=== PATIENT | male | born 1990 | race Caucasian/White ===

== ENCOUNTER 2017-04-10 06:15 | Inpatient (IN) ==
[2017-04-10] MEDS ORDERED: SODIUM CHLORIDE 0.9% 1,000 ML IV STA (06:32)
[2017-04-10] MEDS ORDERED: PANTOPRAZOLE 40 MG VIAL IV STA ×2 (06:32→11:20)
[2017-04-10] MEDS ORDERED: DICYCLOMINE 20 MG/2 ML AMP IM ONE ×2 (06:32→06:45)
[2017-04-10] MEDS ORDERED: ONDANSETRON 4 MG/2 ML VIAL IV STA ×2 (06:32→07:36)
[2017-04-10] MEDS ORDERED: ONDANSETRON 4 MG/2 ML VIAL ONE ×3 (06:45→16:28)
[2017-04-10] MEDS ORDERED: PANTOPRAZOLE 40 MG VIAL IV ONE (06:45)
[2017-04-10 06:47] LABS: Basophils # 0.1 10*3/uL (0.0-0.2); Basophils % 0.4 % (0.0-0.8); Eosinophils # 0.1 10*3/uL (0.0-0.87); Eosinophils % 0.4 % (0.00-10.9); Hematocrit 47.4 VOL% (42.0-52.0); Hemoglobin 16.2 GM/DL (14.0-18.0); Immature Granulocytes % 0.5 %; Immature Granulocytes Absolute 0.08 #; Lymphocytes # 1.9 10*3/uL (1.4-4.0); Lymphocytes % 12.5 % (21.2-54.2); Mean Corpuscular HGB Conc 34.2 GM/DL (32-36); Mean Corpuscular Hemoglobin 31 PG (27-34); Mean Corpuscular Volume 90.3 FL (87-102); Mean Platelet Volume 10.7 FL (9.6-12.0); Monocytes # 0.8 10*3/uL (0.11-0.8); Monocytes % 5.3 % (1.7-12.7); Neutrophils % 80.9 % (38.7-73.9); Platelet Count 380 T/CUMM (130-400); Red Blood Count 5.25 MC/CUMM (3.8-5.5); Red Cell Distribution Width 11.9 % (9.3-17.3); White Blood Count 14.8 T/CUMM (4-12)
[2017-04-10] MEDS ORDERED: cefTRIAXone 1,000 MG in SODIUM CHLORIDE 0.9% 100 ML IV STA (07:10)
[2017-04-10] MEDS ORDERED: metroNIDAZOLE INJ 500 MG in PREMIX 1 EACH IV STA (07:11)
[2017-04-10 07:16] LABS: Alanine Aminotransferase 24 U/L (16-61); Albumin 4.5 G/DL (3.4-5.0); Alkaline Phosphatase 76 U/L (45-117); Amylase 55 U/L (25-115); Aspartate Amino Transferase 27 U/L (0-37); Blood Urea Nitrogen 12 MG/DL (7-18); Glucose 114 MG/DL (74-106); Osmolality,Calculated 277.5 MOS/KG (273-304); Potassium 4.2 MMOL/L (3.5-5.1); Sodium 139 MMOL/L (136-145); Total Protein 8.1 G/DL (6.4-8.3); Troponin I Only < 0.015 NG/ML (0.00-0.045)
[2017-04-10] MEDS ORDERED: cefTRIAXone 1,000 MG VIAL ONE ×2 (07:28→15:45)
[2017-04-10] MEDS ORDERED: metroNIDAZOLE 500 MG/100 ML PREMIX IV ONE (07:28)
[2017-04-10 07:35] LABS: Apearance,Urine Slightly Hazy (Clear); Bacteria,Urine Occasional /HPF (Few); Bilirubin,Urine Negative (Negative); Blood, Urine Negative (Negative); Glucose,Urine (UA) Negative (Negative); Ketones,Urine 20 mg/dL (Negative); Mucus,Urine Moderate /LPF (Occasional); Nitrite,Urine Negative (Negative); Protein,Urine 100 MG/DL; RBC,Urine 5 /HPF (0-4); Urine Color Amber (Yellow); Urine Specific Gravity 1.027 (1.001-1.035); WBC,Urine 2 /HPF (0-6)
[2017-04-10] MEDS ORDERED: HYDROmorphone 2 MG/1 ML VIAL ONE ×2 (07:36→16:27)
[2017-04-10] MEDS ORDERED: HYDROmorphone 2 MG/1 ML VIAL IV STA ×2 (07:36→09:55)
[2017-04-10 08:15] LABS: Lactic Acid 0.9 MMOL/L (0.4-2.0)
[2017-04-10] MEDS ORDERED: HYDROmorphone 2 MG/1 ML VIAL IV PRN (11:20)
[2017-04-10] MEDS: ONDANSETRON 4 MG/2 ML VIAL IV PRN (11:47)
[2017-04-10] MEDS: LACTATED RINGERS 1,000 ML IV SCH ×3 (11:50→20:30)
[2017-04-10] MEDS: cefTRIAXone 2,000 MG in SYRINGE 1 EACH IV SCH (13:52)
[2017-04-10] MEDS: metroNIDAZOLE INJ 500 MG in PREMIX 1 EACH IV SCH ×2 (13:53→18:04)
[2017-04-10] MEDS ORDERED: ONDANSETRON 4 MG/2 ML VIAL IV PRN (16:08)
[2017-04-10] MEDS ORDERED: PROPOFOL 200 MG/20 ML VIAL IV ONE (16:27)
[2017-04-10] MEDS: HYDROmorphone 2 MG/1 ML VIAL IV PRN ×4 (16:27→16:42)
[2017-04-10] MEDS ORDERED: ROCURONIUM 100 MG/10 ML VIAL IV ONE (16:28)
[2017-04-10] MEDS ORDERED: NEOSTIGMINE 10 MG/10 ML VIAL ONE (16:28)
[2017-04-10] MEDS ORDERED: MIDAZOLAM 2 MG/2 ML VIAL ONE (16:28)
[2017-04-10] MEDS ORDERED: LACTATED RINGERS 1,000 ML IV ONE (16:28)
[2017-04-10] MEDS ORDERED: SODIUM CHLORIDE 0.9% 100 ML IV ONE (16:28)
[2017-04-10] MEDS ORDERED: SUCCINYLCHOLINE 200 MG/10 ML VIAL ONE (16:28)
[2017-04-10] MEDS ORDERED: GLYCOPYRROLATE 0.4 MG/2 ML VIAL ONE (16:28)
[2017-04-10] MEDS ORDERED: NALOXONE 0.4 MG/ML VIAL IV PRN (16:30)
[2017-04-10] MEDS ORDERED: MORPHINE PCA 150 MG/30 ML SYRINGE IV SCH (16:30)
[2017-04-10] MEDS ORDERED: MORPHINE PCA 30 MG/30 ML SYRINGE IV ONE ×2 (16:41→17:06)
[2017-04-10 16:44] LABS: Apearance,Urine CLEAR (Clear); Bilirubin,Urine Negative (Negative); Blood, Urine Negative (Negative); Glucose,Urine (UA) Negative (Negative); Ketones,Urine 80 mg/dL (Negative); Mucus,Urine Occasional /LPF (Occasional); Nitrite,Urine Negative (Negative); Protein,Urine Negative; RBC,Urine 12 /HPF (0-4); Squamous Epithelial Cell,Urine Occasional /HPF (0-10); Urine Color Yellow (Yellow); Urine Specific Gravity > 1.060 (1.001-1.035); Urine Urobilinogen < 2.0 EU/DL (0.2-1.0); WBC,Urine 1 /HPF (0-6)
[2017-04-10] MEDS: MORPHINE PCA 30 MG/30 ML SYRINGE IV SCH (17:06)
[2017-04-10] MEDS ORDERED: KETOROLAC 30 MG/1 ML VIAL IV ONE (23:00)
[2017-04-11] MEDS: metroNIDAZOLE INJ 500 MG in PREMIX 1 EACH IV SCH ×5 (00:44→23:59)
[2017-04-11] MEDS: MORPHINE PCA 30 MG/30 ML SYRINGE IV SCH (03:13)
[2017-04-11] MEDS: KETOROLAC 15 MG/1 ML VIAL IV SCH ×4 (04:50→23:49)
[2017-04-11] MEDS: LACTATED RINGERS 1,000 ML IV SCH ×3 (07:24→21:39)
[2017-04-11] MEDS ORDERED: LACTATED RINGERS 2,000 ML IV ONE (10:59)
[2017-04-11] MEDS: HYDROmorphone 2 MG/1 ML VIAL IV PRN ×4 (11:47→21:38)
[2017-04-11] MEDS: cefTRIAXone 2,000 MG in SYRINGE 1 EACH IV SCH (15:08)
[2017-04-11] MEDS: KETOROLAC 30 MG/1 ML VIAL IV SCH (23:57)
[2017-04-12] MEDS: LACTATED RINGERS 1,000 ML IV SCH ×4 (02:29→23:33)
[2017-04-12] MEDS: HYDROmorphone 2 MG/1 ML VIAL IV PRN ×7 (02:39→22:11)
[2017-04-12] MEDS: ONDANSETRON 4 MG/2 ML VIAL IV PRN ×4 (02:44→22:02)
[2017-04-12] MEDS: KETOROLAC 30 MG/1 ML VIAL IV SCH ×4 (05:52→23:33)
[2017-04-12] MEDS: metroNIDAZOLE INJ 500 MG in PREMIX 1 EACH IV SCH ×4 (05:52→23:37)
[2017-04-12 05:59] LABS: Basophils % 0.1 % (0.0-0.8); Eosinophils # 0.2 10*3/uL (0.0-0.87); Eosinophils % 2.1 % (0.00-10.9); Hematocrit 34.2 VOL% (42.0-52.0); Immature Granulocytes % 0.4 %; Immature Granulocytes Absolute 0.03 #; Lymphocytes % 24.2 % (21.2-54.2); Mean Corpuscular HGB Conc 34.2 GM/DL (32-36); Mean Corpuscular Hemoglobin 31 PG (27-34); Mean Corpuscular Volume 91.4 FL (87-102); Mean Platelet Volume 10.8 FL (9.6-12.0); Monocytes # 0.9 10*3/uL (0.11-0.8); Monocytes % 11.4 % (1.7-12.7); Neutrophils # 5.1 10*3/uL (1.4-7.4); Neutrophils % 61.8 % (38.7-73.9); Red Cell Distribution Width 11.6 % (9.3-17.3)
[2017-04-12 07:11] LABS: Red Blood Count 3.74 MC/CUMM (3.8-5.5); White Blood Count 8.2 T/CUMM (4-12)
[2017-04-12 07:12] LABS: Hemoglobin 11.7 GM/DL (14.0-18.0); Platelet Count 227 T/CUMM (130-400)
[2017-04-12 09:10] LABS: Calcium 8.4 MG/DL (8.5-10.1); Osmolality,Calculated 282.1 MOS/KG (273-304); Potassium 3.9 MMOL/L (3.5-5.1)
[2017-04-12] MEDS ORDERED: POLYVINYL ALCOHOL 1.4% OPH SOLN 15 ML BOTTLE BOTH EYES PRN (10:59)
[2017-04-12] MEDS ORDERED: LACTATED RINGERS 1,000 ML IV ONE (11:37)
[2017-04-12] MEDS: cefOXitin 2,000 MG in SYRINGE 1 EACH IV SCH ×2 (12:52→21:10)
[2017-04-12] MEDS: ENOXAPARIN 40 MG/0.4 ML SYRINGE SUBCUT SCH (12:53)
[2017-04-13] MEDS: HYDROmorphone 2 MG/1 ML VIAL IV PRN ×6 (02:06→20:07)
[2017-04-13] MEDS: cefOXitin 2,000 MG in SYRINGE 1 EACH IV SCH ×3 (04:31→20:29)
[2017-04-13] MEDS: LACTATED RINGERS 1,000 ML IV SCH ×3 (04:36→17:56)
[2017-04-13 05:07] LABS: Basophils % 0.3 % (0.0-0.8); Eosinophils # 0.5 10*3/uL (0.0-0.87); Eosinophils % 5.8 % (0.00-10.9); Hematocrit 31.5 VOL% (42.0-52.0); Hemoglobin 10.9 GM/DL (14.0-18.0); Immature Granulocytes % 0.4 %; Immature Granulocytes Absolute 0.03 #; Lymphocytes # 1.6 10*3/uL (1.4-4.0); Lymphocytes % 20.5 % (21.2-54.2); Mean Corpuscular HGB Conc 34.6 GM/DL (32-36); Mean Corpuscular Hemoglobin 31 PG (27-34); Mean Corpuscular Volume 88.7 FL (87-102); Mean Platelet Volume 11.3 FL (9.6-12.0); Monocytes # 0.6 10*3/uL (0.11-0.8); Monocytes % 7.2 % (1.7-12.7); Neutrophils # 5.3 10*3/uL (1.4-7.4); Neutrophils % 65.8 % (38.7-73.9); Platelet Count 205 T/CUMM (130-400); Red Blood Count 3.55 MC/CUMM (3.8-5.5); Red Cell Distribution Width 11.3 % (9.3-17.3)
[2017-04-13 05:36] LABS: Calcium 7.9 MG/DL (8.5-10.1); Osmolality,Calculated 275.4 MOS/KG (273-304); Potassium 3.8 MMOL/L (3.5-5.1)
[2017-04-13] MEDS: KETOROLAC 30 MG/1 ML VIAL IV SCH ×3 (05:52→17:56)
[2017-04-13] MEDS: metroNIDAZOLE INJ 500 MG in PREMIX 1 EACH IV SCH ×3 (05:55→17:56)
[2017-04-13] MEDS: ENOXAPARIN 40 MG/0.4 ML SYRINGE SUBCUT SCH (12:10)
[2017-04-13 13:09] LABS: Apearance,Urine CLEAR (Clear); Bilirubin,Urine Negative (Negative); Blood, Urine Small mg/dL (Negative); Glucose,Urine (UA) Negative (Negative); Ketones,Urine 80 mg/dL (Negative); Mucus,Urine Occasional /LPF (Occasional); Nitrite,Urine Negative (Negative); Protein,Urine Negative; RBC,Urine 5 /HPF (0-4); Urine Color Straw (Yellow); Urine Urobilinogen < 2.0 EU/DL (0.2-1.0); WBC,Urine 3 /HPF (0-6)
[2017-04-13] MEDS: ONDANSETRON 4 MG/2 ML VIAL IV PRN (16:38)
[2017-04-13] MEDS: diphenhydrAMINE 50 MG/1 ML VIAL IV PRN (20:26)
[2017-04-14] MEDS: KETOROLAC 30 MG/1 ML VIAL IV SCH ×4 (00:17→17:11)
[2017-04-14] MEDS: metroNIDAZOLE INJ 500 MG in PREMIX 1 EACH IV SCH ×4 (00:20→17:32)
[2017-04-14] MEDS: HYDROmorphone 2 MG/1 ML VIAL IV PRN ×8 (00:25→22:59)
[2017-04-14] MEDS: LACTATED RINGERS 1,000 ML IV SCH ×2 (02:24→07:14)
[2017-04-14] MEDS: diphenhydrAMINE 50 MG/1 ML VIAL IV PRN (04:28)
[2017-04-14] MEDS: cefOXitin 2,000 MG in SYRINGE 1 EACH IV SCH ×3 (04:33→20:08)
[2017-04-14] MEDS: ENOXAPARIN 40 MG/0.4 ML SYRINGE SUBCUT SCH (12:13)
[2017-04-14] MEDS: ONDANSETRON 4 MG/2 ML VIAL IV PRN (22:59)
[2017-04-15] MEDS: KETOROLAC 30 MG/1 ML VIAL IV SCH ×3 (00:38→11:10)
[2017-04-15] MEDS: metroNIDAZOLE INJ 500 MG in PREMIX 1 EACH IV SCH ×3 (00:38→13:18)
[2017-04-15] MEDS: cefOXitin 2,000 MG in SYRINGE 1 EACH IV SCH ×2 (03:22→11:10)
[2017-04-15] MEDS: HYDROmorphone 2 MG/1 ML VIAL IV PRN ×3 (03:25→10:45)
[2017-04-15] MEDS ORDERED: oxyCODONE/ACETAMINOPHEN 5-325 MG TABLET PO PRN (11:01)
[2017-04-15 11:30] VITALS: BP 135/80
[2017-04-15] MEDS: ENOXAPARIN 40 MG/0.4 ML SYRINGE SUBCUT SCH (13:17)
== END 2017-04-15 13:08 | disposition home or self-care (01) | DRG 337 ==
LOC: N.ED 06:15 → N.EDINP 09:37 → N.3E 10:48
PROVIDERS: ADMIT Surgery; ATTEND Surgery